=== PATIENT | female | born 1980 | race Caucasian/White ===

== ENCOUNTER 2022-11-28 16:01 | Emergency (ER) | payer MEDICAID ==
[2022-11-28] MEDS ORDERED: KETOROLAC 30 MG/ML VIAL IM STA (16:14)
--- NOTE | 2022-11-28 16:17 | ED Physician Documentation ---
History of Present Illness - Stated complaint Stated Complaint: LOWER BACK/HIP PX - Chief complaint Chief Complaint: Back Pain - Additonal information Additional information: She reports that she was walking down stairs about 2 weeks ago when she tripped falling backwards mostly onto her left hip but her buttocks. She was able to get up on her own. However since then she has had fairly persistent pain in the low back sacral region. No saddle anesthesia, loss of bowel or bladder function. Has occasionally taken 400 mg of Motrin without relief of symptoms. Over the last 24 hours finding herself more uncomfortable having to change p ositions frequently due to the pain. Does not radiate. Review of Systems Constitutional: denies: Fever Nose: reports: Reviewed and negative Cardiac: reports: Reviewed and negative Musculoskeletal: reports: Back pain Neurologic: reports: Reviewed and negative Psychiatric: reports: Reviewed and negative PD PAST MEDICAL HISTORY - Present Medications Home Medications: Ambulatory Orders Medication Instructions Recorded Confirmed Cyclobenzaprine [Flexeril] 10 mg PO TID PRN #20 tablet 11/28/22 HYDROcod/ACETAM 5/325 [Iona 5/325] 1 tablet PO BID PRN #5 tablet 11/28/22 - Allergies Allergies/Adverse Reactions: Allergies Allergy/AdvReac Type Severity Reaction Status Date / Time Penicillins Allergy Unknown Verified 11/28/22 16:04 PD ED PE NORMAL - General General: Alert and oriented X 3, No acute distress, Well developed/nourished - Respiratory Respiratory: Clear bilaterally - Back Back: No CVA TTP. No: No spinal TTP (No midline thoracic or lumbar tenderness was elicited. Some mild low back paraspinous tenderness elicited with palpation. Normal forward flexion lower lumbar spine. Normal gait. Negative straight leg bilaterally.) - Derm Derm: Normal color, Warm and dry. No: No rash - Extremities Extremities: No deformity - Neuro Neuro: Alert and oriented X 3 Eye Opening: Spontaneous Motor: Obeys Commands Verbal: Oriented GCS Score: 15 Results - Vitals Vitals: Vital Signs - 24 hr 11/28/22 16:05 Temperature 37.3 C - Rads (name of study) hip bilat xr Relevant Findings:: Final report received (No displaced fracture seen on plain films) sacrum coccyx Relevant Findings:: Final report received (No acute bony abnormality seen by plain film) PD Medical Decision Making - ED course Complexity details: reviewed results, re-evaluated patient, d/w patient ED course: 41-year-old female presents emergency department for evaluation of acute and worsening low back pain after falling down some stairs about 2 weeks ago. Reports falling directly onto her hip and sacral area. Over the course of time she has had some persistent pain in the lower pelvic back region making it difficult to find a position of comfort. She has tried 400 mg of Motrin without relief. She has no saddle anesthesia no loss of bowel or bladder function. Her low back pain exam was nonfocal with no midline tenderness elicited. She had full forward flexion of the lumbar spine and normal gait. X-ray of the sacrum coccyx as well as hips and pelvis revealed no obvious fracture. Given the chronicity of the symptoms I have low suspicion for occult fracture. This may be contusion over the last several weeks. I did recommend therapeutic doses of Motrin and Tylenol at home. She wanted to try a short course of a muscle relaxer which I have prescribed to the [facility] in [place]. Also very limited amount of Iona was sent for worsening pain. Advise close follow-up with PCP. Usual emergent return precautions for worsening symptoms including saddle anesthesia loss of bowel or bladder function was discussed. Departure - Departure Disposition: 01 Home, Self Care Clinical Impression: Low back pain Qualifiers: Chronicity: acute Back pain laterality: bilateral Sciatica presence: without sciatica Qualified Code(s): M54.50 - Low back pain, unspecified Condition: Stable Record reviewed to determine appropriate education?: Yes Instructions: ED Contusion Back Prescriptions: Cyclobenzaprine [Flexeril] 10 mg PO TID PRN #20 tablet PRN Reason: Spasms HYDROcod/ACETAM 5/325 [Iona 5/325] 1 tablet PO BID PRN #5 tablet PRN Reason: Pain Comments: The x-ray of both your hips, pelvis and low back sacrum/coccyx do not show any obvious fractures. I suspect that what you are contending with is contusion that is left the muscles stiff and sore. In general take ibuprofen 600 mg 3 times a day with food or alternate with Tylenol 500 mg also 3 times a day. You may find some benefit by using a muscle relaxer so I sent a prescription for Flexeril to the [facility] in [place]. Use it cautiously as it may be sedating make you unsafe to drive or operate heavy machinery. Please follow closely with your primary care doctor. If not markedly better may benefit from referral to physical therapy. Return to the emergency department if you develop any numbness in your genital area, lose control of your bowel or bladder function, or have sudden weakness in your legs. I am prescribing a short course of narcotic pain medication for you. These are potentially dangerous and addictive medications that should be used carefully. These medications may constipate you. Take an ccug-pfh-wpuubup stool softener (docusate) twice daily with plenty of water while taking these medications. If you go 24 hours without a bowel movement, take nyve-cyy-qrzactb miralax, per p daron instructions. Do not drink or drive while taking these medications. If you received narcotic or sedating medications while in the emergency department, do not drive for 24 hours. Store this medication in a safe, secure place and out of reach of children. It is a violation of federal law to give or sell this medication to another person or to use in a manner other than prescribed. The ED will not refill narcotic prescriptions, including prescriptions lost or stolen. To dispose of unwanted medications: 1. [facility] [address] in [place] has a medication drop box. They accept prescription medications (in pill form) Tuesday through Tuesday 9:00 a.m. to 5:00 p.m. 2. The [facility] [employer] accepts prescription medications (in pill form only) for disposal year round. Call for more information. 3. Contact the [facility] for the next [facility] sponsored prescription drug collection event. , [phone], or [phone]; Note that many narcotic pain relievers also contain Tylenol/acetaminophen. Please ensure that your total dose of acetaminophen from all sources does not exceed 3 g (3000 mg) per day.
--- NOTE | 2022-11-28 17:01 | XRAY Report ---
PROCEDURE: Sacrum/Coccyx INDICATIONS: fall 2 weeks ago TECHNIQUE: 2 views of the sacrum and coccyx acquired. COMPARISON: Correlation is made with the accompanying hip plain films. FINDINGS: Bones: No fractures or dislocations. No suspicious bony lesions. Soft tissues: Visualized bowel gas pattern is normal. No suspicious soft tissue densities. IMPRESSION: No acute bony abnormality can be seen by plain film. Reviewed by: Yobany Berman MD on 11/28/2022 4:00 PM TYLER Approved by: Yobany Berman MD on 11/28/2022 4:00 PM [facility]BEVERLEY Station ID: [id number]
--- NOTE | 2022-11-28 17:02 | XRAY Report ---
PROCEDURE: Hips 2V BILAT INDICATIONS: fall 2 weeks ago; eval for occult fx TECHNIQUE: AP view of the pelvis and a frog-leg view of both hips together were acquired. COMPARISON: Correlation is made with the accompanying sacral plain films. FINDINGS: Bones: No fractures or dislocations. No suspicious bony lesions. Soft tissues: No suspicious soft tissue calcifications or masses. IMPRESSION: No displaced fractures can be seen on these plain films. Reviewed by: Yobany Berman MD on 11/28/2022 4:00 PM TYLER Approved by: Yobany Berman MD on 11/28/2022 4:00 PM TYLER Station ID: [id number]
== END 2022-11-28 17:17 | disposition home or self-care (01) ==
LOC: ED 16:01
DX: M54.50 Low back pain, unspecified (principal)
CPT/HCPCS: 96372; 99283